=== PATIENT | male | born 1965 | race Caucasian/White ===

== ENCOUNTER 2025-03-01 02:09 | Emergency (ER) | payer BC, SELFPAY ==
[2025-03-01 02:11] VITALS: BP 139/93
[2025-03-01 02:13] VITALS: BP 139/93
[2025-03-01 02:20] VITALS: BMI 28.3
[2025-03-01 02:24] LABS: Hematocrit 42.7 % (39.0-52.0); Hemoglobin 14.8 g/dL (13.0-18.0); Mean Corp Hgb Conc. 34.7 g/dL (33.0-37.0); Mean Corpuscular Volume 88.8 fL (80.0-94.0); Nucleated Red Blood Cells % 0 % (-); Platelet Count 196 10^3/uL (130-400); Red Cell Dist. Width 12.7 % (11.5-14.5)
[2025-03-01 02:44] LABS: D-Dimer < 0.27 ug/mlFEU (0.00-0.50)
[2025-03-01 03:00] LABS: ALT (SGPT) 45 U/L (0-50); AST (SGOT) 27 U/L (17-59); Albumin 4.8 g/dl (3.5-5.0); Alkaline Phosphatase 66 U/L (38-126); Blood Urea Nitrogen 19 mg/dl (9-20); Calcium 9.4 mg/dl (8.4-10.2); Carbon Dioxide 24 mmol/L (22-30); Chloride 105 mmol/L (98-107); Estimated Creatinine Clearance 87 ml/min; Glucose 122 mg/dl (70-99); Potassium 3.9 mmol/L (3.5-5.1); Sodium 140 mmol/L (135-145); Total Protein 8.2 g/dl (6.3-8.2); eGFR > 60.00
[2025-03-01 03:17] VITALS: BP 131/80
[2025-03-01 03:23] LABS: Troponin I < 0.012 ng/ml
[2025-03-01 04:00] VITALS: BP 132/78
--- NOTE | 2025-03-01 04:25 | ED.GENMED ---
History of Present Illness
General
Chief Complaint: Chest Pain
Source: patient and family
Time Seen by Provider: 03/01/25 02:21
Nursing documentation reviewed up to this point in time: agreed with
History of Present Illness
History of Present Illness:
Note:
CHIEF COMPLAINT(S)
Rectal bleeding over the past few days.
HISTORY OF PRESENT ILLNESS
The patient is a 78-year-old male who has been experiencing rectal bleeding for the past couple of days, with today being particularly severe. He reports passing clots in his stool approximately three to four times. The patient has a history of
pericarditis. He is concerned about blood loss due to the ongoing bleeding and is under the care of a family physician, Dr. Castaneda. He was questioned about the usage of blood thinners and confirmed taking Clopidogrel (Plavix), which he stated was
prescribed by Dr. Sewell. The suspicion of significant blood loss led to the decision to administer a blood transfusion, and consent was obtained verbally.
MEDICATIONS
- Clopidogrel (Plavix)
PLAN
- Obtain verbal consent for blood transfusion and proceed with transfusion to replace suspected lost blood due to rectal bleeding.
- Establish an additional intravenous line for blood product administration.
DIFFERENTIAL DIAGNOSIS
The Differential Diagnosis includes, in no particular order and is not limited to:
1. Gastrointestinal bleeding
2. Diverticulosis
3. Colorectal cancer
4. Hemorrhoids
5. Angiodysplasia
6. Ischemic colitis
7. Inflammatory bowel disease
8. Peptic ulcer disease with secondary bleeding
9. Platelet dysfunction due to antiplatelet therapy
10. Perianal disease
CARE-UPDATE
03/01/25 - 00:26
Patient to be admitted to ICU due to GI bleed. Blood consent is signed on chart; transfuse two units of PRBCs. Notification made to hospital and Dr. Darren Rodriguez, GI doctor global compensation director.
Disposition:
SUMMARY OF ENCOUNTER
The patient, a 78-year-old male, presented with gross rectal bleeding and clotting over the past few days. The bleeding was severe enough to cause concern for significant blood loss. A drop in hemoglobin by two points indicated potential critical
blood loss, necessitating immediate intervention.
DISPOSITION
Admit
ASSESSMENT
The patient is experiencing significant gastrointestinal bleeding indicated by clotting and drop in hemoglobin levels, raising suspicion for conditions such as diverticulosis, colorectal cancer, hemorrhoids, or other GI pathologies.
MANAGEMENT OF THE PATIENTS CARE WAS DISCUSSED WITH
Hospital service was notified, and the patient will be admitted for further management of gastrointestinal bleeding.
PLAN
The plan includes admission to the hospital for monitoring and further diagnostic evaluation to determine the source of bleeding and appropriate treatment.
INDEPENDENT REVIEW OF LABS AND INTERPRETATION OF TESTS
My independent review of the patients hemoglobin level indicates a drop of two points, suggesting significant blood loss potentially from gastrointestinal bleeding.
MEDICATION RECONCILIATION
Clopidogrel (Plavix) is among the medications the patient is currently taking, which may contribute to or exacerbate bleeding.
MEDICAL DECISION MAKING
-Complexity of Data Reviewed: Chronic conditions affecting care include a history of pericarditis. The differential diagnosis includes gastrointestinal bleeding, diverticulosis, colorectal cancer, hemorrhoids, angiodysplasia, ischemic colitis,
inflammatory bowel disease, peptic ulcer disease with secondary bleeding, platelet dysfunction due to antiplatelet therapy, and perianal disease.
-Data:
Category 1
Clinical information included the patients current medication regimen and blood transfusion needs for suspected blood loss.
Category 3
Discussion of management included consultation with the hospital service to address the need for admission and further evaluation.
-Risk:
The decision to admit the patient reflects concern for potential complications and the need to control ongoing gastrointestinal bleeding. Prescription medication management includes ongoing usage of Clopidogrel (Plavix), which may affect bleeding
risk.
DIAGNOSIS
- Gastrointestinal bleeding (K92.2)
Phy Exam
Physical Exam
Physical Exam:
.
Scores
Heart Score for Chest Pain Patients
STEMI patient?: No
History: Slightly or Non-Suspicious
ECG: Normal
Age: >/= 65 years
Risk Factors: 1 or 2 Risk Factors
Troponin: </= Normal Limit
Heart Score for Chest Pain Patients: 3
Heart Score Risk: 2.5% MACE over next 6 weeks
Course
Orders/Labs/Results
Orders:
Orders
03/01/25 02:16
Electrocardiogram (*1) Urgent
Reason for Study: Chest Pain
Cardiac Monitoring- Treatment ONCE
EKG- Treatment ONCE
IV Insert/Care/Rem.- Treatment PRN
O2 Therapy [RESP] Urgent
Titrate/Wean O2 to maintain O2 sat greater than (%): 90
Special Instructions: Maintain sats >/=90%
Pulse Ox/spot Check [RESP] Urgent
Quantity: 1
Special Instructions: ON ROOM AIR
03/01/25 02:18
Complete Blood Count/With Diff Urgent
Comprehensive Metabolic Panel Urgent
DDimer [D-Dimer] Urgent
Troponin I Urgent
03/01/25 02:50
CR Chest - 2 Views Urgent
Comment:
Reason For Exam: cp
03/01/25 03:52
EKG- Treatment ONCE
03/01/25 05:00
Electrocardiogram (*1) Urgent
Reason for Study: Chest Pain
03/01/25 05:09
Troponin I Urgent
Abnormal Lab Results
03/01/25
02:18
Abs Immat Gran (auto) 0.1 H 10^3/uL
(0-0.05)
Absolute Neuts (auto) 8.7 H 10^3/uL
(1.4-6.5)
Absolute Lymphs (auto) 1.0 L 10^3/uL
(1.2-3.4)
Immature Gran % 0.6 H %
(0-0.5)
Neutrophils % 83.6 H %
(42.2-75.2)
Lymphocytes % 9.5 L %
(20.5-51.1)
Glucose 122 H mg/dl
(70-99)
03/01/25 02:18
03/01/25 02:18
Vital Signs
Initial and Last Documented VS:
Initial Vital Signs
Temp Pulse Resp BP Pulse Ox
98.4 F 79 11 139/93 97
03/01/25 02:11 03/01/25 02:11 03/01/25 02:11 03/01/25 02:11 03/01/25 02:11
Last Documented Vital Signs
Temp Pulse Resp BP Pulse Ox
98.4 F 74 10 131/80 95
03/01/25 02:11 03/01/25 03:30 03/01/25 03:30 03/01/25 03:17 03/01/25 04:25
*Pulse Oximetry
SaO2: 95
Oxygen Mode of Delivery: Room air
Patient hypoxic: no
*Critical Care Note
Total Time (30-74mins, 75-104mins- exclusive of procedures): Not Applicable
ED Attending Note
-
Portions of this chart may have been created with voice recognition software.� Occasional wrong word or��sound alike� substitutions may have occurred due to the inherent limitations of voice recognition software.
Discharge Plan
Departure
Patient Disposition: Home (Routine Discharge)
Date of Disposition: 03/01/25
Time of Disposition: 05:00
Patient with high blood pressure during this ER visit?: Yes
Condition: Good
Discharge Problem:
Chest pain
Instructions: Chest Pain CBC Follow Up, BLOOD PRESSURE
Prescriptions:
No Action
aspirin 81 mg Tablet
81 mg PO DAILY
Referrals:
[facility] [Provider Group]
UNKNOWN - PT DOES,NOT KNOW [Family Provider]
Activity Restrictions/Additional Instructions:
Thank You for choosing [facility].
It was a pleasure meeting you and taking part in your care. We hope for your continued healing and wellness.
Please read discharge instructions in their entirety. However, they are for general education and may not describe your exact diagnosis at discharge. Information on your ER visit and medical conditions were discussed with you along with appropriate
follow up information...
If indicated, please take your medications as instructed and indicated on discharge paperwork.
Please schedule a follow up appointment as directed. Call to schedule an appointment
Please return to the emergency department with ANY change in, persisting, or worsening of symptoms. If any of your symptoms do not improve, or persist, or become more severe within 6-12 hours, please return to the emergency department for further
care.
Please return to the emergency department if you develop a headache, neck pain/stiffness, fever greater than 100.4F, chest pain, shortness of breath, persistent nausea, vomiting, slurred speech, difficulty walking, numbness/tingling, weakness, signs
of infection or any other symptoms that are worrisome to you.
If you have any questions or concerns please do not hesitate to call the Hospital at or E-mail me directly at [email or web address]
Interventions
Interventions:
*Risk Screen - Suicide Last Done: 03/01/25 02:22
*General Assessment Last Done: 03/01/25 02:22
*Neglect/Abuse Screening Last Done: 03/01/25 02:22
*ED- Fall Risk Assessment Last Done: 03/01/25 02:22
*ED COVID-19 Vaccine History Last Done: 03/01/25 02:22
ED- Cardiac Assessment Last Done: 03/01/25 03:27
Discharge Date and Time
Print Language: LIBERIAN
[2025-03-01 05:00] VITALS: BP 127/84
[2025-03-01 05:41] LABS: Troponin I < 0.012 ng/ml
[2025-03-01 05:55] VITALS: BP 141/85
== END 2025-03-01 06:02 | disposition home or self-care (01) ==
LOC: EMR 02:09
PROVIDERS: EMERGENCY PHYSICIAN Student in an Organized Health Care Education/Training Program
DX: R07.9 Chest pain, unspecified (principal); Z87.19 Personal history of other diseases of the digestive system; Z79.02 Long term (current) use of antithrombotics/antiplatelets
CPT/HCPCS: 99285; 71046; 80053; 84484; 85025; 85379; 93005